=== PATIENT | female | born 1955 | race Caucasian/White ===

== ENCOUNTER 2020-10-26 19:38 | Emergency (ER) | payer BC ==
[2020-10-26] MEDS ORDERED: Metoprolol Succinate 25 MG Tab.ER PO ONE (21:09)
--- NOTE | 2020-10-26 21:10 | EDM.PDOC ---
ED HPI GENERAL MEDICAL PROBLEM - General Chief Complaint: ENT Problem Stated Complaint: HIGH BP & BLOODY NOSE Time Seen by Provider: 10/26/20 19:59 Source of Information: Reports: Patient History Limitations: Reports: No Limitations - History of Present Illness INITIAL COMMENTS - FREE TEXT/NARRATIVE: Lisa is a 64-year-old female from [place], [place] who presents to the ED w ith recurrent epistaxis and elevated blood pressure. Patient has a history significant for crest syndrome and essential hypertension for which she is on indapamide and diltiazem. She has noted that her first episode of epistaxis was last night with pressures in the 196/96 range. Her bleed last night lasted about 20 to 30 minutes and then subsided. She had a second episode today and was found to have a blood pressure in the 190s over 90s again. Normally she runs much lower. She reports that she has had essential hypertension since she was 21 years old and was diagnosed about 5 years ago with crest syndrome. She is followed by [facility] for both her primary care as well as rheumatology and spine service. - Related Data Allergies Allergy/AdvReac Type Severity Reaction Status Date / Time hydroxychloroquine Allergy Rash Verified 10/26/20 19:52 [From Plaquenil] Home Meds: Home Meds Acetaminophen [Tylenol] 1,300 mg PO BID 10/26/20 [History] Cholecalciferol (Vitamin D3) [Vitamin D3] 2,000 unit PO DAILY 10/26/20 [History] Diltiazem [Diltiazem ER] 60 mg PO DAILY 10/26/20 [History] Indapamide 5 mg PO DAILY 10/26/20 [History] Metoprolol Succinate 25 mg PO DAILY 30 Days #30 tab.er.24h 10/26/20 [Rx] Nabumetone [Relafen] 1,599 mg PO DAILY 10/26/20 [History] Omeprazole Magnesium [Prilosec] 20 mg PO DAILY 10/26/20 [History] Potassium Chloride [K-Tab] 20 meq PO DAILY 10/26/20 [History] traMADol [Ultram] 50 mg PO Q6H PRN 10/26/20 [History] Past Medical History HEENT History: Reports: Epistaxis Cardiovascular History: Reports: Hypertension Gastrointestinal History: Reports: Colon Polyp, GERD, PUD PEST CONTROL SPECIALIST History: Reports: Musculoskeletal History: Reports: Arthritis Other Musculoskeletal History: reynaud's, Crest syndrome Endocrine/Metabolic History: Reports: Osteoporosis, Vitamin D Deficiency Immunologic History: Reports: Immunosuppression - Infectious Disease History Infectious Disease History: Reports: Chicken Pox, Mononucleosis, Scarlet Fever - Past Surgical History GI Surgical History: Reports: Colonoscopy Female Surgical History: Reports: Mastectomy Oncologic Surgical History: Reports: Mastectomy Social & Family History - Tobacco Use Tobacco Use Status *Q: Never Tobacco User - Caffeine Use Caffeine Use: Reports: Coffee - Alcohol Use Days Per Week of Alcohol Use: 4 Number of Drinks Per Day: 1 Total Drinks Per Week: 4 - Recreational Drug Use Recreational Drug Use: No ED ROS ENT - Review of Systems Review Of Systems: See Below Constitutional: Reports: No Symptoms HEENT: Reports: Nosebleed Respiratory: Reports: No Symptoms Cardiovascular: Reports: No Symptoms Endocrine: Reports: No Symptoms GI/Abdominal: Reports: No Symptoms : Reports: No Symptoms Musculoskeletal: Reports: No Symptoms Skin: Reports: No Symptoms Neurological: Reports: No Symptoms Psychiatric: Reports: No Symptoms Hematologic/Lymphatic: Reports: No Symptoms Immunologic: Reports: No Symptoms ED EXAM, ENT - Physical Exam Exam: See Below Exam Limited By: No Limitations General Appearance: Alert, WD/WN, No Apparent Distress Eye Exam: Bilateral Eye: EOMI, PERRL Nose: Other (Well adherent clot on both sides of the septum at Kesselbach's triangle. No active bleeding at this time.) Mouth/Throat: Normal Inspection, Normal Gums, Normal Lips, Normal Oropharynx, Normal Teeth. No: Bleeding Head: Atraumatic, Normocephalic Neck: Normal Inspection, Supple, Non-Tender. No: Carotid Bruit Respiratory/Chest: No Respiratory Distress, Lungs Clear, Normal Breath Sounds, No Accessory Muscle Use Cardiovascular: Normal Peripheral Pulses, Regular Rate, Rhythm, No Murmur Neurological: Alert, Oriented, Normal Cognition, No Motor/Sensory Deficits Psychiatric: Normal Affect, Normal Mood Skin: Warm, Dry, Intact, Normal Color Lymphatic: No Adenopathy Course - Vital Signs Last Recorded V/S: Last Vital Signs Temp 37.3 C 10/26/20 20:06 Pulse 89 10/26/20 20:06 Resp 18 10/26/20 20:06 BP 184/90 H 10/26/20 20:06 Pulse Ox 100 10/26/20 20:06 - Re-Assessments/Exams Free Text/Narrative Re-Assessment/Exam: 10/26/20 21:00 there is no active bleeding from the nasal septum at this time. We discussed treatment options but I am recommending we obtain simply observe it for any recurrence. I did recommend using the nasal saline gel spray every 2-4 hours for the next 2 to 3 days to keep the nose moisturized. I also advised against blowing the nose. As for the patient's blood pressure we will initiate her on a low-dose metoprolol ER 25 mg daily. I like her to follow-up with her primary care provider in a week to 2 weeks for recheck of her blood pressure as she will likely need to have this dose increased. Indications return to the ED were discussed and she was suitable for discharge in satisfactory condition. Departure - Departure Time of Disposition: 21:05 Disposition: Home, Self-Care 01 Condition: Good Clinical Impression: Essential hypertension, CREST syndrome, Anterior epistaxis - Discharge Information *PRESCRIPTION DRUG MONITORING PROGRAM REVIEWED*: Not Applicable *COPY OF PRESCRIPTION DRUG MONITORING REPORT IN PATIENT INGA: Not Applicable Prescriptions: Metoprolol Succinate 25 mg PO DAILY 30 Days #30 tab.er.24h Instructions: Hypertension, Adult, [id number], Nosebleed, [id number] Referrals: PCP,None [Primary Care Provider] - Care Plan Goals: We are going to start you on metoprolol ER 25 mg daily. This is a very low dose of a medication called a beta-ciara which will help keep your heart rate under control as well as lower your blood pressure. I would like you to follow-up with your primary care provider in 1 to 2 weeks for recheck of your blood pressure. At this time we will simply observe what is going on with the epistaxis as there seems to be a well adherent clot on Kesselbach's triangle preventing any further bleeding. I would recommend using the Edison nasal saline gel every 2-4 hours over the next 2 to 3 days to keep the nasal passages moisturized. Please refrain from blowing your nose. Should you develop significant bleeding please return to the ED at which point we may need either cauterized or packed the nose. We are giving you a dose of the metoprolol for tonight which should allow you time to pickers material handlers the prescription tomorrow at any of the local pharmacies. Sepsis Event Note (ED) - Evaluation Sepsis Screening Result: No Definite Risk - Focused Exam Vital Signs: Vital Signs Temp Pulse Resp BP Pulse Ox 10/26/20 20:06 37.3 C 89 18 184/90 H 100
== END 2020-10-26 21:24 | disposition home or self-care (01) ==
LOC: JP.ED 19:38
DX: R04.0 Epistaxis (principal); I10 Essential (primary) hypertension; M34.1 CR(E)ST syndrome; K21.9 Gastro-esophageal reflux disease without esophagitis; Z88.8 Allergy status to other drugs, medicaments and biological substances; Z79.899 Other long term (current) drug therapy
CPT/HCPCS: 99283; A9270

== ENCOUNTER 2021-03-09 00:01 | Emergency (ER) | payer BC, OTHER ==
--- NOTE | 2021-03-09 01:39 | EDM.PDOC ---
ED HPI GENERAL MEDICAL PROBLEM - General Chief Complaint: ENT Problem Stated Complaint: BLOODY NOSE Time Seen by Provider: 03/09/21 00:15 Source of Information: Reports: Patient History Limitations: Reports: No Limitations - History of Present Illness INITIAL COMMENTS - FREE TEXT/NARRATIVE: Lisa is a 65-year-old female presenting to the ED with acute onset of epistaxis that started around 2300 hrs. tonight. Patient has a history of recurring epistaxis out of the right nostril. She states that she usually she can get them under control with pressure, however, tonight it was not stopping prompting her to come in. I did see her back in September 2020 for epistaxis at which time she had a hemostatic balloon placed. She is not crazy about the idea of this being redone. She denies any trauma to the nose. She does have seasonal allergies this year which is new causing some rhinorrhea. She has been applying Vaseline to the nares a couple times a day to help with moisturizing and lubricating the nostrils. denies pain Pain Score (Numeric/FACES): 0 - Related Data Allergies Allergy/AdvReac Type Severity Reaction Status Date / Time hydroxychloroquine Allergy Rash Verified 03/09/21 00:31 [From Plaquenil] Home Meds: Home Meds Acetaminophen [Tylenol] 1,300 mg PO BID 10/26/20 [History] Cholecalciferol (Vitamin D3) [Vitamin D3] 2,000 unit PO DAILY 10/26/20 [History] Diltiazem [Diltiazem ER] 60 mg PO DAILY 10/26/20 [History] Indapamide 5 mg PO DAILY 10/26/20 [History] Nabumetone [Relafen] 1,500 mg PO DAILY 10/26/20 [History] Omeprazole Magnesium [Prilosec] 20 mg PO DAILY 10/26/20 [History] Potassium Chloride [K-Tab] 20 meq PO DAILY 10/26/20 [History] traMADol [Ultram] 50 mg PO Q6H PRN 10/26/20 [History] Metoprolol Succinate 25 mg PO DAILY 03/09/21 [History] Past Medical History HEENT History: Reports: Epistaxis Cardiovascular History: Reports: Hypertension Gastrointestinal History: Reports: Colon Polyp, GERD, PUD Genitourinary History: Reports: None GARDENER History: Reports: Musculoskeletal History: Reports: Arthritis Other Musculoskeletal History: reynaud's, Crest syndrome Endocrine/Metabolic History: Reports: Osteoporosis, Vitamin D Deficiency Immunologic History: Reports: Immunosuppression - Infectious Disease History Infectious Disease History: Reports: Chicken Pox, Mononucleosis, Scarlet Fever - Past Surgical History Cardiovascular Surgical History: Reports: Other (See Below) Other Cardiovascular Surgeries/Procedures: bilateral carotid ablation GI Surgical History: Reports: Colonoscopy Female Surgical History: Reports: Mastectomy Oncologic Surgical History: Reports: Mastectomy Social & Family History - Tobacco Use Tobacco Use Status *Q: Never Tobacco User - Caffeine Use Caffeine Use: Reports: Coffee - Recreational Drug Use Recreational Drug Use: No ED ROS ENT - Review of Systems Review Of Systems: See Below Constitutional: Reports: No Symptoms HEENT: Reports: Nosebleed (From the right naris) Respiratory: Reports: No Symptoms Cardiovascular: Reports: No Symptoms Endocrine: Reports: No Symptoms GI/Abdominal: Reports: No Symptoms : Reports: No Symptoms Musculoskeletal: Reports: No Symptoms Skin: Reports: No Symptoms Neurological: Reports: No Symptoms Psychiatric: Reports: No Symptoms Hematologic/Lymphatic: Reports: No Symptoms Immunologic: Reports: Seasonal Allergy, Other (Patient has crest syndrome) ED EXAM, ENT - Physical Exam Exam: See Below Exam Limited By: No Limitations General Appearance: Alert, No Apparent Distress Nose: Active Bleeding (There is a scant amount of bleeding coming from the anterior septum just below a very inflamed turbinate.) ED ENT PROCEDURES - Epistaxis Procedure Indication: Epistaxis Recent anticoagulants/antiplatlets: No Uncontrolled HTN: No Recent septal/nasal surgery: No Site of bleeding: Right Nare Clearing of clots: Patient Blew Nose Topical Meds: Other (Tranexamic acid) Ice pack to area: No Anterior Packing: Nasal Tampon (Soaked in tranexamic acid) Complications: No Course - Vital Signs Last Recorded V/S: Last Vital Signs Temp 36.8 C 03/09/21 00:24 Pulse 93 03/09/21 00:24 Resp 16 03/09/21 00:24 BP 160/69 H 03/09/21 00:24 Pulse Ox 97 03/09/21 00:24 - Orders/Labs/Meds Meds: Medications Discontinued Medications Generic Name Dose Route Start Last Admin Trade Name Freq PRN Reason Stop Dose Admin Tranexamic Acid 500 mg 03/09/21 00:29 Tranexamic Acid 1,000 Mg/10 Ml Amp TOP 03/09/21 00:30 ONETIME ONE - Re-Assessments/Exams Free Text/Narrative Re-Assessment/Exam: 03/09/21 01:42 I had the patient clear her right naris with blowing her nose. I do see an area that is eroded just below the inferior turbinate on the right. This appears to be the nidus of the bleeding. We discussed different measures to try to treat this including chemical cautery, electrocautery, nasal tampon, and hemostatic balloon. After discussion, the patient wanted to proceed with a nasal tampon. I did elect to instill the tampon with tranexamic acid once it was deployed to help it expand and to apply that to the area that has been bleeding. The patient was observed for half an hour without rebleeding. She is resting comfortably. At this time I believe she is suitable for discharge home. Indications to return to the ED were discussed. She may remove the nasal tampon in 5 days with gentle traction on the string. All questions were answered prior to discharge. Patient's in agreement with the plan. Departure - Departure Time of Disposition: 01:38 Disposition: Home, Self-Care 01 Clinical Impression: Anterior epistaxis - Discharge Information Instructions: Nosebleed, [id number] Referrals: EUGENIA MONTES [Other] Forms: ED Department Discharge Care Plan Goals: The Rhino Rocket should stay in place for 5 days. You may slowly pull it out after that. Should you have any significant bleeding from this nostril please return to the ED for evaluation. Good luck with your Zoom meeting. Sepsis Event Note (ED) - Evaluation Sepsis Screening Result: No Definite Risk - Focused Exam Vital Signs: Vital Signs Temp Pulse Resp BP Pulse Ox 03/09/21 00:24 36.8 C 93 16 160/69 H 97 03/09/21 00:13 36.8 C 93 16 160/69 H 97 - Problem List & Annotations (1) Anterior epistaxis SNOMED Code(s): 395318147 Code(s): R04.0 - EPISTAXIS Status: Acute Priority: Medium Current Visit: Yes - Problem List Review Problem List Initiated/Reviewed/Updated: Yes
== END 2021-03-09 01:54 | disposition home or self-care (01) ==
LOC: JP.ED 00:01
DX: R04.0 Epistaxis (principal); I10 Essential (primary) hypertension; K21.9 Gastro-esophageal reflux disease without esophagitis; Z79.899 Other long term (current) drug therapy
CPT/HCPCS: 30903; 99283-25

== ENCOUNTER 2024-07-19 07:11 | Day surgery (SDC) | payer MEDICARE, OTHER ==
[2024-07-19] MEDS ORDERED: fentaNYL 50 MCG/ML SDV ONE (07:18)
[2024-07-19] MEDS ORDERED: Midazolam 1 MG/ML 2 ML SDV ONE (07:18)
[2024-07-19] MEDS ORDERED: Propofol 200 MG/20 ML SDV ONE ×2 (07:18→08:32)
[2024-07-19] MEDS: Sodium Chloride 0.9% 1,000 ML IV SCH (07:54)
== END 2024-07-19 10:20 | disposition home or self-care (01) ==
LOC: JP.SDS 07:11
PROVIDERS: ATTEND Surgery
DX: Z12.11 Encounter for screening for malignant neoplasm of colon (principal); D12.3 Benign neoplasm of transverse colon; K21.00 Gastro-esophageal reflux disease with esophagitis, without bleeding; K63.5 Polyp of colon; K31.7 Polyp of stomach and duodenum; K44.9 Diaphragmatic hernia without obstruction or gangrene; R13.10 Dysphagia, unspecified; I12.9 Hypertensive chronic kidney disease with stage 1 through stage 4 chronic kidney disease, or unspecified chronic kidney disease; K22.89 Other specified disease of esophagus; N18.9 Chronic kidney disease, unspecified
CPT/HCPCS: 00813; 43239; 45380; 45385; J2250; J2704; J3010; J7030; 88305; 88312; 88342